=== PATIENT | male | born 1940 | race Caucasian/White ===

== ENCOUNTER 2016-12-13 13:24 | Emergency (ER) | payer MEDICARE ==
[~2016-12-13 13:24] MED LIST: ASA5GR PO; EFFIENT10 PO; FENESIN IR400 MG PO; FOLIC PO; LOP25 PO; MTX2.5 PO; NITROQUICK0.4 MG SL; OXAPROZIN600 MG PO; PLAVIX PO; PRAVACHOL40 MG PO; PRIN5 PO; REMICADE IV; VALTREX1 GM PO; ZYRTEC ALLGY10 MG PO
[2016-12-13 14:26] LABS: BASOPHILS 0.4 %; BASOPHILS ABSOLUTE 0.04 10/3/uL (0.0-0.16); EOSINOPHILS 1.6 %; EOSINOPHILS ABSOLUTE 0.15 10/3/uL (0.0-0.53); ER CBC TAT 0 Hrs 07 Mins; HEMATOCRIT 42.2 % (40.0-51.0); HEMOGLOBIN 14.4 g/dL (13.6-17.8); IMMATURE GRANULOCYTES 0.3 %; IMMATURE GRANULOCYTES ABSOLUTE 0.03 10/3/uL (0.0-0.11); LYMPHOCYTES 14.1 %; LYMPHOCYTES ABSOLUTE 1.32 10/3/uL (0.67-4.30); MANUAL DIFF NO %; MEAN CORPUS HGB CONC 34.1 g/dL (32.0-36.0); MEAN CORPUSCULAR HEMOGLOB 31.3 pg (26.0-34.0); MEAN CORPUSCULAR VOLUME 91.7 fL (80-100); MEAN PLATELET VOLUME 9.9 fL (9.2-13.0); MONOCYTES 6.4 %; NEUTROPHILS 77.2 %; PLATELET COUNT 163 10/3/uL (150-400); RBC DISTRIBUTION WIDTH 12.9 % (12.0-16.0); WHITE BLOOD CELLS 9.3 10/3/uL (4.5-10.5)
[2016-12-13 14:44] LABS: BUN (BLOOD UREA NITROGEN) 15 MG/DL (6-23); CALCIUM, SERUM 8.6 MG/DL (8.5-10.4); CHEST PAIN PROFILE TAT 0 Hrs 25 Mins; CHLORIDE, SERUM 109 MMOL/L (96-112); CO2 (CARBON DIOXIDE) 27 MMOL/L (24-34); CREATININE 0.97 MG/DL (0.70-1.30); GFR AFRICAN AMERICAN 88 ML/MIN (>=60); GFR NON AFRICAN AMERICAN 76 ML/MIN (>=60); POTASSIUM, SERUM 4.1 MMOL/L (3.5-5.3); SODIUM, SERUM 145 MMOL/L (135-148); TROPONIN I <0.02 NG/ML (<0.05)
[2016-12-13 14:46] LABS: GLUCOSE, SERUM 106 MG/DL (60-99)
[2016-12-13 14:55] LABS: INTERNATIONAL NORMAL RATI 1.1 UNITS (-); PROTIME (NOT ORD) 13.6 SEC (12.0-14.5)
[2016-12-13 14:56] LABS: PARTIAL THROMBO TIME 22.1 SEC (22.5-37.2)
[2016-12-13 16:07] LABS: ASCORBIC ACID (UR NOT ORDER) NEG (NEG); BILIRUBIN, URINE NEGATIVE (NEG); ER URINALYSIS TAT 0 Hrs 11 Mins; KETONE, URINE 20 MG/DL (NEG); LEUKOCYTE ESTERASE(NOT OR NEG (NEG); NITRITE (URINE) NEG (NEG); WBC (NOT ORDERED) (RFLEX) < 1 (0-5)
== END 2016-12-13 18:14 | disposition home or self-care (01) ==
LOC: ER 13:24
PROVIDERS: Emergency Medicine
DX: R11.2 Nausea with vomiting, unspecified (principal); M79.1 Myalgia; I25.10 Atherosclerotic heart disease of native coronary artery without angina pectoris; I10 Essential (primary) hypertension; Z95.5 Presence of coronary angioplasty implant and graft; Z88.8 Allergy status to other drugs, medicaments and biological substances; Z79.82 Long term (current) use of aspirin; Z79.899 Other long term (current) drug therapy
CPT/HCPCS: 70450; 71010; 80048; 81001; 83735; 84484; 85025; 85610; 85730; 96374; 96375; 99285; C9113; J2405; J2550; J2800